=== PATIENT | female | born 1955 | race Caucasian/White ===

== ENCOUNTER 2016-07-31 11:10 | Outpatient (CLI) | payer OTHER ==
--- NOTE | 2016-07-31 11:52 | DIAGNOSTIC IMAGING REPORT ---
PROCEDURE: XR ELBOW 3 OR 4 VIEWS - LEFT INDICATION: ELBOW PX LEFT TECHNIQUE: Four views. COMPARISON: None. FINDINGS: Radial head fracture involving the lateral aspect of the radial head. This is only visible on one view. There is also a joint effusion. IMPRESSION: 1. Nondisplaced radial head fracture and joint effusion.
== END 2016-07-31 23:00 | disposition home or self-care (01) ==
LOC: XR SRH 11:10
DX: S52.125A Nondisplaced fracture of head of left radius, initial encounter for closed fracture (principal); M25.422 Effusion, left elbow